=== PATIENT | male | born 1970 | race Caucasian/White ===

== ENCOUNTER 2024-12-29 05:55 | Day surgery (SDC) | payer BC, SELFPAY ==
--- NOTE | 2024-12-22 07:23 | EKG12_ITS ---
Test Reason : PREOP Blood Pressure : */* mmHG Vent. Rate : 59 BPM Atrial Rate : 59 BPM P-R Int : 144 ms QRS Dur : 94 ms QT Int : 404 ms P-R-T Axes : 10 1 33 degrees QTcB Int : 399 ms Sinus bradycardia Otherwise normal ECG Confirmed by MARTA OROZCO, FLACO ([id number]), movie editor JONO GOOD ([id number]) on 12/23/2024 7:09:40 AM Referred By: Ashley Boone Confirmed By: FLACO LOZANO MD
[2024-12-29] VITALS (11 sets, daily range): BP systolic 115–139; BP diastolic 65–83; PULSE 69–82; RESP 16; TEMP 36.1–36.6; O2SAT 95–100; BMI 30.4
[2024-12-29] MEDS: 0.9% Normal Saline (1000mL) 1,000 ML 15 ML IV ×2 (06:40→10:34)
--- NOTE | 2024-12-29 06:58 | PRE.ANES_ITS ---
ASA Classification* ASA Classification ASA Classification: 1 Assessment & Plan Anesthesia* Anesthesia Assessment Anesthesia Assessment: Discussed sedation and/or anesthesia options, risks, benefits, and alternatives with patient/parents/legal guardian/POA. Questions invited. The patient/parents/legal guardian/POA seems to understand and agrees to proceed with anesthesia plan. Reviewed the physical assessment, medical history, allergy history and patient home medications list prior to surgery/procedure/anesthetic and documented any changes. Performed airway and anesthesia risk assessments. Anesthesia Type Anesthesia Type: General History Source History Obtained from:: Patient and Chart Anesthesia Focused Assessment* Temperature: 97.3 F Pulse Rate: 70 Blood Pressure: 139/83 Respiratory Rate: 16 Pulse Ox: 100 Oxygen Delivery Method: Room Air Airway Assessment Mouth opens: >3 cm Mallampati Score: I Teeth Condition: Intact Neck Range of motion (ROM): Full ROM Focused Labs Anesthesia Preop lab: CBC CHEMISTRY COAG Pre-Assessment Diagnosis/Proposed Procedure Planned Operative Procedure(s): LAP ROBOTIC RIGHT INGUINAL HERNIA REPAIR WITH MESH, POSS BILATERAL Anesthesia History Anesthesia History - data review specialist: Anesthesia History - data review specialist Hx Hospitalization No 12/21/24 14:20 Any Problems With Anesthesia No 12/21/24 14:20 Cholinesterase deficiency No 12/21/24 14:20 You/Your Family Experience No 12/21/24 14:20 fever (hyperthermia) with Relationship Recent Exposure to Contagious No 12/29/24 06:28 Disease Does patient have nerve No 12/21/24 14:20 stimulator Patient instructed to have device shut off --Does patient have Pacemaker No 12/29/24 06:30 or ICD? When Was Last Pacemaker Check QUESTION #4 FULL TEXT: You/Your Family Experience fever (hyperthermia) with Anesthesia Last Oral Intake Last Oral intake: Last Oral Intake NPO since 03:00 12/29/24 06:30 Meds taken in AM with sips of No 12/29/24 06:30 water? Meds patient instructed to take am of surgery Any additional information?: Yes NPO since: 03:30 (Had some water at 3:30 AM.) PONV PONV - data review specialist: PONV - data review specialist Female No 12/21/24 14:20 HX of Motion Sickness No 12/21/24 14:20 HX of N/V After Surgery No 12/21/24 14:20 Non-Smoker Yes 12/21/24 14:20 Duration of Surgery greater Yes 12/21/24 14:20 than 60 minutes Number of Risk Factors 2 12/21/24 14:20 PONV Score Moderate Risk 12/21/24 14:20 Height & Weight Height & Weight: Anesthesia: Height & Weight Height 6 ft 1 in 12/29/24 06:30 Weight: 104.78 kg 12/29/24 06:30 Body Mass Index (BMI) 30.4 12/29/24 06:30 Respiratory Assessment Respiratory Assessment - data review specialist: Respiratory Tract Infection Hx - data review specialist Hx Respiratory Tract Infection No 12/21/24 14:20 STOP Sleep Apnea STOP Sleep Apnea - data review specialist: STOP Sleep Apnea - data review specialist Hx Hypertension No 12/21/24 14:20 Hx Sleep Apnea No 12/21/24 14:20 CPAP BIPAP Do you snore loudly (louder No 12/21/24 14:20 than talking or can be heard Do you often feel tired/ No 12/21/24 14:20 fatigued/ sleepy during daytime? Has anyone observed you stop No 12/21/24 14:20 breathing during sleep? STOP Results Negative 12/21/24 14:20 QUESTION #5 FULL TEXT : Do you snore loudly (louder than talking or can be heard through closed doors)? Tobacco Use History Tobacco Use History - data review specialist: Tobacco Use History - data review specialist Tobacco Use Smoking Status Never smoker 12/21/24 14:20 Hx Tobacco Use No 12/21/24 14:20 Years Smoking Packs Smoked per Day Smoking Cessation Date was within the last 15 years Hx Smoking Cessation Date Hx Smoking Cessation Counseling Hematologic Medial History Hematologic Hx - data review specialist: Hematologic Medical Hx - home designer Hx of Blood Transfusion No 12/21/24 14:20 Hx of Transfusion in last 3 No 12/21/24 14:20 Months Date of Last Transfusion (if within last 3 months) Ever experience any problems No 12/21/24 14:20 with transfusion(s)? Specify any problems Hx of Preganancy in last 3 N/A 12/21/24 14:20 Months Nurse Filling Out Transfusion [email or web address] 12/21/24 14:20 & Questions: Date: 12/21/24 12/21/24 14:20 Time: 14:23 12/21/24 14:20 Patient unable to answer at this time (ie. confused, unrespo /Reproduction History /Reproductive History - data review specialist: /Reproductive Hx- data review specialist Hx Now No 12/21/24 14:20 Gestational Age (in weeks): EDC: Hx Hx Para Hx Section SAB No 12/21/24 14:20 Active Medications Active Medications: Current Medications Generic Name Dose Route Start Last Admin Trade Name Freq PRN Reason Stop Dose Admin Sodium Chloride 1,000 mls @ 15 mls/hr 12/29/24 06:10 12/29/24 06:40 IV 01/03/25 19:29 15 mls/hr .Q48H MIA Administration Protocol PFSH Medical History Wears glasses Colonoscopy planned Non-smoker Home Medications ?Medication ?Instructions ?Recorded ?Last Taken ?Type NK 12/13/24 Unknown History Allergy/AdvReac Type Severity Reaction Status Date / Time No Known Allergies Allergy Verified 12/29/24 06:27 Family History Father Hypertension Social History Smoking Status: Never smoker alcohol intake: never Review of Systems (Anesthesia) ROS Narrative System reviewed and no additional complaints, except as documented.
--- NOTE | 2024-12-29 07:17 | PCM.HP.BLA ---
History and Physical Date of Admission: 12/29/24 Date of Service: 12/13/24 MR#: [id number] Acct: [id number] Name: BARBY GIRON Rep #: [id number] : 1970 Provider: Dr. Ashley Boone MD Age/Sex: 54/M Location: [facility] Status: Signed Intake Vital Signs 12/13/2508:31 Height 6 ft 1 in Weight: 228 lb 6 oz BMI 30.1 BP 145/72 H Blood Pressure Location Rt brachial Position Sitting Respiration 17 Pulse 61 Pulse Source Monitor Pulse Oximetry (%) 98 Oxygen Delivery Method room air Intake Visit Reasons: SELF REFERRED INGUINAL HERNIA Chief Complaint: self referred inguinal hernia Is patient in pain?: No Allergies No Known Allergies Allergy (Verified 12/13/24 09:34) Medications ?Medication ?Instructions ?Recorded ?Confirmed ?Type NK 12/13/24 History PFSH Family History (Updated 12/13/24 @ 09:31 by Melanie Iqbal) Father Hypertension Social History (Updated 12/13/24 @ 09:31 by Melanie Iqbal) Smoking Status: Never smoker alcohol intake: never HPI HPI HPI: 54-year-old male presents due to right inguinal hernia. Patient states he noticed it in September when lifting. Patient states it does bulge out but he is able to reduce it. Patient has avoided lifting since. Patient never had any abdominal surgeries. ROS General General: No weight change, appetite, fatigue, colon cancer, breast cancer or weakness HEENT HEENT: No difficulty swallowing, eye injury, eye surgery, swollen glands or hoarseness Endo Endocrine: No thyroid disease, diabetes mellitus, thyroid cancer, Hair loss, heat intolerance or cold intolerance Skin Skin: No rash or changing moles Musc Musculoskeletal: No back problems, arthritis, rheumatoid arthritis, gout or joint pain Cardio Cardiovascular: No murmur, pacemaker, heart disease, atrial fibrillation, high blood pressure, heart attack, heart stent, palpitations, shortness of breat with exertion or chest pain Psych Psychiatric: No depression, anxiety or hearing voices Resp Respiratory: No shortness of breath, No sleep apnea, No cough, No COPD, No asthma, No emphysema and No wheezing Gastro Gastrointestinal: No abdominal pain, No nausea or vomiting, No diarrhea, No constipation, No blood in stool, No acid reflux, No hemorrhoids, No ulcers, No gallbladder problem and No black,tarry stools Jeff Hematologic: No blood thinners, No blood disorders, No bleeding, No anemia and No blood clots Neuro Neurologic: No system reviewed and no additional complaints, except as documented, No as per HPI, No abnormal gait, No abnormal hearing, No abnormal movements, No abnormal speech, No behavioral changes, No burning sensations, No confusion, No convulsions, No disequilibrium, No dizziness, No localized weakness, No frequent falls, No headache(s), No lack of coordination, No loss of vision, No memory loss, No numbness, No other visual disturbances, No radicular pain, No restless legs, No sensory deficit, No syncope, No tingling, No tremor(s), No weakness and No other Exam Const General: cooperative, healthy appearing, comfortable and no acute distress HENMT Head: normocephalic and atraumatic Neck Neck: supple Resp Effort & Inspection: normal respiratory effort Cardio Rate: regular rate GI Inspection: non-distended Palpation: soft, hernia (Right inguinal, no hernia on exam on the left) and nontender Skin General: no rashes or lesions noted Neuro General: CN's II-XI intact bilaterally Extrem General: normal to inspection Psych Mental Status: mental status grossly normal Attitude: cooperative Assessment and Plan Assessment and Plan (1) Right inguinal hernia: Status: Acute Plan Plan to do a robotic right inguinal hernia repair with mesh, possible bilateral. Reviewed the procedure with the patient including the risks, including but not limited to infection, bleeding, paresthesia, chronic pain, injury to small bowel or contents of the spermatic cord, and recurrence. Patient no further question this time. Ashley Boone M.D. Pager: [phone] [facility] [address] [place] [address], [facility], [address] [place] [address] Office: [phone] Coding Level of Care Code Off vis,new,level 3 Diagnoses Right inguinal hernia K40.90 12/14/24 1305 <Electronically signed by Ashley Boone MD> Date Ashley Boone MD
--- NOTE | 2024-12-29 07:30 | LIP_PTH ---
PATIENT: BARBY GIRON [place] [facility] [id number] AGE/SX: 54/M ROOM: RE12/29/[address]: Dr. Ashley Boone MD : 1970 BED: DIS: 12/29/2024 SPEC #: [id number] RECD: 12/29/24 10:33 STATUS: MANSOOR RIGO #: [id number] JOSE: 12/29/24 07:[address]: Ashley Boone DEPT: SURGICAL PATHOLOGY RECD BY: Maria A Dooley ENTERED: 12/29/24 12:39 SP TYPE: LIPOMA FITO DR: No Primary Care Phys Tissues: Soft tissues, NOS Procedures: Surgery Specimen Level III HEADER OPERATION: Robotic right inguinal hernia repair with mesh PRE-OP DIAGNOSIS: Right inguinal hernia TISSUE SUBMITTED: Cord lipoma MICROSCOPIC DIAGNOSIS Cord lipoma, excision: Fragments of mature adipose tissue, consistent with lipoma. SJ.mr 01/01/2025 MICROSCOPIC DESCRIPTION Slides are reviewed. GROSS DESCRIPTION Received in fixative is one container labeled with the patient's name and designated Cord lipoma. The specimen consists of two pieces of yellow adipose tissue measuring in aggregate 3.5 x 3 x 0.5cm. The entire specimen is submitted in two cassettes. 12/29/2024 TC:5 CPT:94371
[2024-12-29] MEDS: Cefazolin 2 GM in Syringe IV (07:33)
[2024-12-29] MEDS: Bupivacaine Mpf 0.5% 30 ML VIAL (09:09)
--- NOTE | 2024-12-29 09:20 | OP.PCM_ITS ---
Operative Report (Standard) Operative Information Date of Procedure: 12/29/24 Pre-Operative Diagnosis: right inguinal hernia Post-Operative Diagnosis: right indirect inguinal hernia, right cord lipoma Surgery/Procedure Performed: robotic right inguinal hernia repair with mesh professor of political science: Yes Cigar Packing Examiner: Padmini Velasquez Tasks completed by assistant professor of communication: Opening & closing Type of Anesthesia: General/Supplemental RN Documented Start/Stop Times: Operation Date: 12/29/24 07:30 Case Time Into Pre-Op 12/29/24 06:05 Out of Pre-Op 12/29/24 07:24 Anesthesia Start 12/29/24 07:28 Into Room 12/29/24 07:28 Procedure Start 12/29/24 07:49 Procedure End 12/29/24 09:17 Anesthesia End 12/29/24 09:28 Out of Room 12/29/24 09:28 Into Recovery 12/29/24 09:30 Procedure Start Time: 07:49 Procedure Stop Time: 09:17 Select all DRAINS/GRAFTS/IMPLANTS that apply: Prosthetic device Prosthetic device details: Right large 3D max mid Lot [id number] ref [id number] Special Medications: ancef 2 grams IV x 1 Estimated Blood Loss: < 10 cc Specimen collected: Yes Description of specimen(s) removed: cord lipoma Description of surgery: Indications: 54-year-old male presented with right inguinal hernia which was symptomatic. Robotic right inguinal hernia repair with mesh was elected patient was agreeable. Description of procedure: Patient was brought to operating room placed supine operative table. Timeout was completed verifying correct patient, procedure, site, positioning, special, prior to beginning procedure. General anesthesia was induced. Patient's arms were tucked and padded appropriately. Visiport was used to make the incision at Azar's point in the left upper quadrant. Entry into the abdomen was confirmed visually. Laparoscope was placed. Verifying no injury during initial trocar placement. Patient was placed in Trendelenburg position. Two 8 mm trochars were placed along the horizontal line in the midline and in the right upper quadrant. The initial 5 mm trocar was upsized to an 8 mm well under direct visualization. Both the inguinal regions were inspected and right indirect was seen, no hernia on the left. The median umbilical ligament was divided sharply with electrocautery. Peritoneum was incised with the endoscopic scissors along a line 2 cm above the superior edge of the hernia defect extending from the median umbilical ligament to anterior superior iliac spine. Peritoneal flap was mobilized inferiorly using blunt and sharp dissection. The inferior epigastric vessels were exposed and symphysis pubis and identified. The indirect hernia sac was large. A large size Bard 3D max mid mesh right was used. The mesh was rolled longitudinally into a compact cylinder and passed through the trocar. The cylinder was placed along the inferior aspect of the working space and unrolled into place to completely cover the direct, indirect and femoral spaces. The mesh was secured in place medially to Robert's ligament using the 3-0 Vicryl suture as well as to the anterior abdominal wall. Care was taken to avoid the inferolateral triangle containing iliac vessels and genital nerves. The peritoneal flap was closed over mesh and secured with 3-0 V-Loc suture. After ensuring adequate hemostasis, the trochars were removed and pneumoperitoneum allowed to escape. The skin was closed with 4-0 Monocryl interrupted sutures and Steri-Strips. Patient's testicles are also confirmed in the scrotum bilaterally. Patient tolerated procedure well was taken to the postanesthesia care unit in stable condition. Surgical Findings: right indirect hernia Complications Complications: No
--- NOTE | 2024-12-29 09:23 | EX.PCM.DISCH ---
Discharge Instructions Procedure Hernia Diet Discharge Diet: Light diet - advance as tolerated Activity Discharge Activity: May Not Drive ( while taking narcotic pain meds.) and May Shower (with the bandage in place 1-2 days after surgery.) Lifting Restrictions: 20 pounds for 2 weeks, no lifting greater than 40 pounds for 4 weeks. Additional Activity Instructions:: Climbing stairs is fine, walking is encouraged. Sitting in bed may be uncomfortable. Sitting up using your lateral muscles (sitting up sideways) is usually more comfortable. Do not drive, work heavy equipment of sign legal documents for 24 hours. You may have scrotal swelling, an ice pack and/or athletic support can provide more comfort. Pain medications may cause nausea, you should typically eat light foods as you take your pain medications. Pain medications may also cause constipation. If you have difficulty with this, discuss with your doctor. Dressing / Incision Call your doctor if your incision/area has: Continuous Slow Oozing, Sudden Increased Bleeding, Increased Pain/ Swelling, Increased Redness and Foul Smelling Discharge Call your doctor if you observe: Fever of 101 or Higher Suture Line Care: Avoid Pulling/Pushing and Avoid Pinching/Bending Change Dressing in: 3 days (Leave steri-strips in place for 7-10 days. May protect with a gauze bandaid.) Additional Dressing/Incision Instructions:: Leave the operative bandage on for 2-3 days. When you remove the bandage, leave the steri-strips on place until your follow up appointment or they fall off. Follow Up Care Please Follow Up With: Ashley Boone MD When: Please call [phone] for a follow up appointment in 2 weeks. Any questions call [phone] after 5:00 PM and on the weekends. Test Results: Test results from this visit will be discussed in further detail at your follow-up appointment, if applicable. Discharge Plan Admission Attending Provider: Ashley Boone Primary Care Provider: Care Physician,No Primary Instructions Print Language: Citizen [place] Discharge Orders/Prescriptions Prescriptions: New oxycodone 5 mg capsule 5 mg PO Q6H PRN (Reason: pain) 3 Days Qty: 10 0RF Other Ambulatory Orders: 12 Lead EKG (Routine) Timeframe: 20241222 Location: None Selected Ordered By: Dr. David Horton Disposition Disposition (needs filled in before D/C Order can be placed): Home, Self Care
--- NOTE | 2024-12-29 09:31 | PCM.POST.ANE ---
Anesthesia: Postop Eval I Current Vital Signs Temperature: 97 F Pulse Rate: 75 Blood Pressure: 117/78 Respiratory Rate: 16 Pulse Ox: 100 Oxygen Delivery Method: Room Air Assessment Airway patent: Yes Spontaneous unlabored respirations: Yes Mental status: Awake and Calm nausea: No Vomiting: No Anesthesia Complication: No Fluid Hydration Crystalloid volume administer (ml): 900 Total IV fluid infused: 900 Progress Note Anesthesia document: Postop Eval 1 completed: Yes
[2024-12-29] MEDS: Acetaminophen 500 MG Tablet PO (10:52)
[2024-12-29] MEDS: oxyCODONE 5 MG Tablet PO (10:52)
--- NOTE | 2024-12-29 11:46 | PCM.POSTANE2 ---
Anesthesia Postop Eval I Sum Postop Eval Completion status Anesthesia document: Postop Eval 1 completed: Yes Anesthesia Postop Eval I Summary Anesthesia Postop Eval I Summary: Anesthesia Postop Eval I: Assessment Summary Airway patent Yes 12/29/24 09:34 Spontaneous unlabored Yes 12/29/24 09:34 respirations Mental status Awake,Calm 12/29/24 09:34 nausea No 12/29/24 09:34 Vomiting No 12/29/24 09:34 Anesthesia Postop Eval I: Fluid Summary Crystalloid volume administer 900 12/29/24 09:34 (ml) Colloids volume administered ( ml) Blood Product volume administered (ml) Total IV fluid infused 900 12/29/24 09:34 Anesthesia Postop Eval I: Summary Notes Anesthesia Complication No 12/29/24 09:34 Anesthesia Complication Comment: Post-operative progress note Anesthesia: Postop Eval II Evaluation Mental status: Awake Pain Level: 0 nausea: No Vomiting: No
== END 2024-12-29 11:53 | disposition home or self-care (01) ==
LOC: SDC 05:56 → AC 05:56
PROVIDERS: Referring Provider Surgery; Visit Provider Surgery
PROC: (CPT 49650; principal; 2024-12-29 07:10)
DX: K40.90 Unilateral inguinal hernia, without obstruction or gangrene, not specified as recurrent (principal)
CPT/HCPCS: 49650; S2900; 00830; 88304; 93005; J2405